=== PATIENT | female | born 1990 | race Caucasian/White ===

== ENCOUNTER 2017-11-23 10:12 | Emergency (ER) | payer OTHER ==
[2017-11-23 10:51] LABS: HCG UR QUAL POSITIVE
--- NOTE | 2017-11-23 11:22 | ED Physician Documentation ---
PD HPI FEMALE - Stated complaint Stated Complaint: FEMALE /[id number] - Chief complaint Chief Complaint: General - History obtained from History obtained from: Patient - History of Present Illness Timing - onset: Last night Timing - duration: Hours Timing - details: Gradual onset, Still present Associated symptoms: Pelvic pain, Vaginal bleeding Contributing factors: OB-[facility] History: G (3), P (1), Miscarriage(s) (1) Similar symptoms before: Diagnosis (miscarriage) Recently seen: Not recently seen - Additional information Additional information: 27-year-old female had a miscarriage at the end of August at her last menstrual period 29 September she had a positive test on 31 October and now has bleeding and cramping. She is concerned about another miscarriage. Review of Systems Constitutional: denies: Fever Respiratory: denies: Cough GI: denies: Abdominal Pain, Nausea, Vomiting : reports: Vaginal bleeding. denies: Dysuria, Frequency PD PAST MEDICAL HISTORY - Past Medical History [facility]: Miscarriage(s) - Past Surgical History Past Surgical History: No - Present Medications Home Medications: Ambulatory Orders Medication Instructions Recorded Confirmed Pnv95/Ferrous Fumarate/FA 11/23/17 [ Tablet] - Allergies Allergies/Adverse Reactions: Allergies Allergy/AdvReac Type Severity Reaction Status Date / Time No Known Drug Allergies Allergy Verified 10/02/15 08:30 - Social History Does the pt smoke?: No Smoking Status: Never smoker Does the pt drink ETOH?: No Does the pt have substance abuse?: No PD ED PE NORMAL - Vitals Vital signs reviewed: Yes (hypertensive ) - General General: Alert and oriented X 3, No acute distress, Well developed/nourished - HEENT HEENT: Atraumatic, PERRL, EOMI - Respiratory Respiratory: No respiratory distress - Abdomen Abdomen: Soft, Non tender - Back Back: No CVA TTP, No spinal TTP - Derm Derm: Normal color, Warm and dry, No rash - Extremities Extremities: No deformity, No edema - Neuro Neuro: Alert and oriented X 3, No motor deficit, No sensory deficit Eye Opening: Spontaneous Motor: Obeys Commands Verbal: Oriented GCS Score: 15 - Psych Psych: Normal mood, Normal affect Results - Vitals Vitals: Vital Signs - 24 hr 11/23/17 11/23/17 11/23/17 10:18 12:52 13:15 Temperature 36.2 C L 36.9 C 36.4 C L Heart Rate 83 83 94 Respiratory 18 16 16 Rate Blood Pressure 138/91 H 124/77 118/82 H O2 Saturation 100 100 100 Oxygen O2 Source Room air - Labs Labs: Laboratory Tests 11/23/17 11/23/17 10:28 11:25 HCG, Quant 2345.[address] 1.015 Urine HCG, Qual POSITIVE - Rads (name of study) OB first trimester ultrasound Radiology: Prelim report reviewed (Impression: Ill-defined cystic focus of the endometrium measures 4 mm. Unclear if this represents a gestational sac. If so , it corresponds to 5 weeks 1 day gestation. It is nonspecific, however. Follow-up is recommended.), EMP read indepedently, See rad report PD MEDICAL DECISION MAKING - ED course Complexity details: reviewed results, re-evaluated patient, considered differential, d/w patient ED course: 27-year-old female has vaginal bleeding in early and ultrasound examination does not demonstrate a conclusive gestational sac. She has had a recent miscarriage and this looks like potential for a repeat. Today her hCG is 2400 range and I have asked her to have that repeated this next week. Departure - Departure Disposition: 01 Home, Self Care Clinical Impression: Threatened miscarriage Instructions: ED Miscarriage Poss Follow-Up: Jaycob Dennis MD [Primary Care Provider] - Comments: Follow-up with your [facility] doctor this week for repeat hCG. Your hCG number today is [id number]. Discharge Date/Time: 11/23/17 13:19
--- NOTE | 2017-11-23 12:49 | Ultrasound Preliminary Report ---
Exam: US OB TRANSVAGINAL IMPRESSION: Ill-defined cystic focus of the endometrium measures 4 mm. Unclear if this represents a g estational sac. If so, it corresponds to 5 weeks 1 day gestation. It is nonspecific, however. Follow-up is recommended. [facility] SITE ID: [id number]
--- NOTE | 2017-11-23 12:50 | Ultrasound Preliminary Report ---
Exam: US OB FIRST TRIMESTER IMPRESSION: Ill-defined cystic focus of the endometrium measures 4 mm. Unclear if this represents a g estational sac. If so, it corresponds to 5 weeks 1 day gestation. It is nonspecific, however. Follow-up is recommended. [facility] SITE ID: [id number]
--- NOTE | 2017-11-23 12:51 | Ultrasound Report ---
EXAM: PELVIC ULTRASOUND EXAM DATE: 11/23/2017 12:32 PM. CLINICAL HISTORY: Bleeding, cramping 8 weeks. COMPARISON: None. TECHNIQUE: Realtime transabdominal pelvic scan performed to identify the uterus and adnexa and as an overview of other pelvic structures, followed by transvaginal scan to provide greater detail of the u terus and adnexa, with static image documentation. FINDINGS: Ill-defined cystic focus of the endometrium measures 4 mm. Unclear if this represent a gestational sa c. If so, it corresponds to 5 weeks 1 day gestation. Right Ovary: 2.6 x 2.5 x 1.2 cm, volume 4 cc. Normal echotexture and blood flow. Left Ovary: 2.3 x 2.1 x 2.0 cm, volume 5 cc. Normal echotexture and blood flow. Free Fluid: None. IMPRESSION: Ill-defined cystic focus of the endometrium measures 4 mm. Unclear if this represents a g estational sac. If so, it corresponds to 5 weeks 1 day gestation. It is nonspecific, however. Follow-up is recommended. [facility] Referring Provider Line: [phone] SITE ID: [id number]
[2017-11-23 13:16] VITALS: BP 118/82
== END 2017-11-23 13:19 | disposition home or self-care (01) ==
LOC: ED 10:12
DX: O20.0 Threatened abortion (principal); Z3A.08 8 weeks gestation of pregnancy; N96 Recurrent pregnancy loss
CPT/HCPCS: 36415; 76801; 76817; 81025; 84702; 99283